=== PATIENT | female | born 1980 | race Caucasian/White ===

== ENCOUNTER → 2020-05-04 | Outpatient (CLI) | payer BC ==
--- NOTE | 2020-05-04 15:44 | RAD ---
INDICATION: Reason: HEMATURIA / Spl. Instructions: / History: COMPARISON: September 2012 TECHNIQUE: Axial CT images obtained through the abdomen and pelvis without contrast. One or more of the following individualized dose reduction techniques were utilized for this examination: 1. Automated exposure control; 2. Adjustment of the mA and/or kV according to patient size; 3. Use of iterative reconstruction technique. FINDINGS: Abdominal aorta is not aneurysmal. Small fat-containing umbilical hernia. No intrahepatic bile duct dilation. No peripancreatic fluid collection. Spleen unremarkable. Bilateral renal stones with the largest on the right measuring up to 7 mm. Urinary bladder is partially distended. There are some calcifications in the bilateral pelvis. No hydronephrosis. Appendix measures approximately 5 mm without definite adjacent inflammatory changes. No dilated loops of bowel to suggest obstruction. There is some mild indistinctness the fat adjacent to the urinary bladder. IMPRESSION: * There is mild indistinctness of fat adjacent to the urinary bladder. Would correlate with symptoms in the region to ensure that this is not secondary to a mild cystitis. * There are nonobstructive bilateral renal stones without hydronephrosis. * No evidence of bowel obstruction or appendicitis. Electronically signed by: Young Rowland MD (05/04/2020 3:41 PM) [id number]
== END ==
LOC: CT 13:15
PROVIDERS: ATTEND Physician Assistant
DX: N20.0 Calculus of kidney (principal); K42.0 Umbilical hernia with obstruction, without gangrene
CPT/HCPCS: 74176